=== PATIENT | male | born 1935 | race Caucasian/White ===

== ENCOUNTER 2017-05-21 10:30 | Outpatient (CLI) | payer OTHER | END 2017-05-21 18:01 | disposition home or self-care (01) | LOC: EEVIPCON 10:30 → SMI 10:30 | DX: M25.562 Pain in left knee (principal) | CPT/HCPCS: 73721 ==

== ENCOUNTER 2019-06-13 17:46 | Inpatient (IN) | payer OTHER, MEDICAID, SELFPAY ==
[~2019-06-13] VITALS: Ht 170.2 cm; Wt 78.5 kg
[2019-06-13 17:49] VITALS: BP_SYST 131
[2019-06-13] MEDS ORDERED: FOLI-43 PO (18:33)
[2019-06-13] MEDS ORDERED: CARB-62 PO (18:33)
[2019-06-13] MEDS ORDERED: CYCL30DR EACH EYE (18:33)
[2019-06-13] MEDS ORDERED: LEVO100T PO (18:33)
[2019-06-13] MEDS ORDERED: SEVE800T8 PO (18:33)
[2019-06-13] MEDS ORDERED: NEPH PO (18:33)
[2019-06-13] MEDS ORDERED: CYAN100082 PO (18:33)
[2019-06-13] MEDS ORDERED: AMI200 PO (18:33)
[2019-06-13] MEDS ORDERED: POLY15DR31 EACH EYE (18:33)
[2019-06-13] MEDS ORDERED: LOSA50TA28 PO (18:33)
[2019-06-13] MEDS ORDERED: DOCU-144 PO (18:33)
[2019-06-13 19:14] LABS: BASOPHILS % (AUTO) 0.4 % (0.0-2.0); EOSINOPHILS # (AUTO) 0.2 K/uL (0.0-0.4); EOSINOPHILS % (AUTO) 1.8 % (0.0-4.0); HEMATOCRIT 31.7 % (36-54); LYMPHOCYTES # (AUTO) 1.4 K/uL (1.0-5.5); LYMPHOCYTES % (AUTO) 14.8 % (20.5-51.5); MEAN CORPUSCULAR HEMOGLOBIN 34 pg (27-31); MEAN CORPUSCULAR HGB CONC 32 % (32-36); MEAN CORPUSCULAR VOLUME 106 fL (79.0-98.0); MONOCYTES # (AUTO) 1.2 K/uL (0.0-1.0); MONOCYTES % (AUTO) 12.3 % (1.7-9.3); NEUTROPHILS # (AUTO) 6.8 K/uL (1.8-7.7); NEUTROPHILS % (AUTO) 70.7 % (40.0-70.0); PLATELET COUNT (AUTO) 106 K/uL (130-430); RED BLOOD CELL COUNT(AUTO) 2.98 MIL/uL (4.2-6.2); RED CELL DISTRIBUTION WIDTH 19.3 % (9.0-15.0); WHITE BLOOD COUNT (AUTO) 9.6 K/uL (4.8-10.8)
[2019-06-13 19:30] LABS: INR 1.3 (0.80-1.20); PROTHROMBIN TIME 12.9 SECS (9.5-12.5)
[2019-06-13 19:37] LABS: ALANINE AMINOTRANSFERASE 8 U/L (12-78); ALBUMIN 1.9 g/dL (3.4-4.8); ANION GAP 13 (5-15); ASPARTATE AMINOTRANSFERASE 24 U/L (10-37); CALCIUM 8.9 mg/dL (8.4-11.0); CHLORIDE 94 mmol/L (98-107); CREATININE 7.31 mg/dL (0.55-1.30); GLUCOSE 121 mg/dL (70-99); POTASSIUM 5.7 mmol/L (3.5-5.1); SODIUM SERUM 133 mmol/L (136-145); TOTAL BILIRUBIN 2.1 mg/dL (0.0-1.0)
[2019-06-13 19:43] LABS: UREA NITROGEN, BLOOD 122 mg/dL (8-21)
[2019-06-13 20:52] LABS: STREPTOCOCCUS A SCREEN (RAPID) NEGATIVE (NEGATIVE)
[2019-06-13 21:08] LABS: INFLUENZA A&B ANTIGEN SCREEN NEGATIVE FOR A & B (NEGATIVE)
[2019-06-13] MEDS ORDERED: IPRATROPIUM BROM 0.5 MG/2.5 ML VIAL.NEB (ATROVENT) INH PRN (21:15)
[2019-06-13] MEDS ORDERED: ALBUTEROL SULFATE 0.083% 2.5 MG/3 ML VIAL.NEB INH PRN (21:15)
[2019-06-13 22:51] VITALS: BP_SYST 113
[2019-06-13 23:15] VITALS: BP_SYST 102
[2019-06-13] MEDS ORDERED: AZITHROMYCIN 500 MG/VIAL (ZITHROMAX) IV ONE (23:42)
[2019-06-13] MEDS ORDERED: cefTRIAXone 1 GM VIAL ONE (23:42)
[2019-06-14] MEDS: ALBUTEROL SULFATE 0.083% 2.5 MG/3 ML VIAL.NEB INH SCH ×4 (00:34→19:54)
[2019-06-14] MEDS: IPRATROPIUM BROM 0.5 MG/2.5 ML VIAL.NEB (ATROVENT) INH SCH ×4 (00:35→19:54)
[2019-06-14] MEDS: cefTRIAXone 1 GM in D5W 50 ML IV SCH ×2 (00:40→20:59)
[2019-06-14] MEDS: AZITHROMYCIN 500 MG in NS 250 ML IV SCH ×2 (00:40→20:59)
[2019-06-14 04:00] VITALS: BP_SYST 94
[2019-06-14] MEDS: SEVELAMER CARBONATE 800 MG TABLET PO SCH ×3 (08:52→17:24)
[2019-06-14] MEDS: DOCUSATE SODIUM 100 MG CAPSULE PO SCH (08:53)
[2019-06-14] MEDS: CYANOCOBALAMIN 1000 mCg TABLET PO SCH (08:54)
[2019-06-14] MEDS: LEVOTHYROXINE SODIUM 0.1 MG TABLET PO SCH (08:54)
[2019-06-14] MEDS: CARBIDOPA/LEVODOPA 25/250 MG TABLET PO SCH ×4 (08:56→21:05)
[2019-06-14] MEDS: LOSARTAN POTASSIUM 50 MG TABLET (COZAAR) PO SCH ×2 (08:57→21:00)
[2019-06-14] MEDS: AMIODARONE HCL 200 MG TABLET PO SCH (08:58)
[2019-06-14 09:01] VITALS: BP_SYST 95
[2019-06-14] MEDS ORDERED: METOCLOPRAMIDE HCL 10 MG/2 ML VIAL IVP PRN (11:15)
[2019-06-14] MEDS ORDERED: ONDANSETRON HCL 4 MG/2 ML VIAL IVP PRN (11:15)
[2019-06-14] MEDS ORDERED: ACETAMINOPHEN 325 MG TABLET PO PRN (11:15)
[2019-06-14] MEDS ORDERED: MORPHINE 4 MG/ML INJ. SYRINGE IVP PRN (11:15)
[2019-06-14] MEDS ORDERED: MORPHINE 2 MG/ML INJ. SYRINGE IVP PRN (11:15)
[2019-06-14] MEDS: LORazepam 2 MG/ML VIAL IVP PRN (11:40)
[2019-06-14 12:00] VITALS: BP_SYST 107
[2019-06-14 16:03] VITALS: BP_SYST 93
[2019-06-14 20:00] VITALS: BP_SYST 113
[2019-06-14] MEDS ORDERED: FOLIC ACID 1 MG TABLET PO SCH (21:00)
[2019-06-15] VITALS: BP_SYST 97
[2019-06-15] MEDS: ALBUTEROL SULFATE 0.083% 2.5 MG/3 ML VIAL.NEB INH SCH (01:00)
[2019-06-15] MEDS: IPRATROPIUM BROM 0.5 MG/2.5 ML VIAL.NEB (ATROVENT) INH SCH (01:00)
[2019-06-15 05:47] VITALS: BP_SYST 108
[2019-06-15 08:42] VITALS: BP_SYST 93
[2019-06-15] MEDS: LORazepam 2 MG/ML VIAL IVP PRN (08:48)
[2019-06-15] MEDS: CYANOCOBALAMIN 1000 mCg TABLET PO SCH (09:00)
[2019-06-15] MEDS: LOSARTAN POTASSIUM 50 MG TABLET (COZAAR) PO SCH (09:00)
[2019-06-15] MEDS: LEVOTHYROXINE SODIUM 0.1 MG TABLET PO SCH (09:00)
[2019-06-15] MEDS: SEVELAMER CARBONATE 800 MG TABLET PO SCH (09:00)
[2019-06-15] MEDS: DOCUSATE SODIUM 100 MG CAPSULE PO SCH (09:00)
[2019-06-15] MEDS: AMIODARONE HCL 200 MG TABLET PO SCH (09:00)
[2019-06-15] MEDS: CARBIDOPA/LEVODOPA 25/250 MG TABLET PO SCH (09:00)
[2019-06-15] MEDS ORDERED: HEPARIN SODIUM,PORCINE 5000 UNITS/ML VIAL SUBCUT ONE (10:45)
[2019-06-15] MEDS ORDERED: DEXTROSE 50% JECT 50 ML DISP.SYRIN IVP ONE (11:13)
[2019-06-15] MEDS ORDERED: NS 1000 ML IV.SOLN IV ONE (11:13)
[2019-06-15] MEDS ORDERED: CALCIUM CHLORIDE 1 GM/10 ML DISP.SYRIN (14 mEq Ca++/SYR) IV ONE (11:13)
[2019-06-15] MEDS ORDERED: SODIUM BICARBONATE 8.4% JECT 50 MEQ/50 ML SYRINGE IVP ONE (11:13)
[2019-06-15] MEDS ORDERED: EPINEPHrine JECT 0.1 MG/ML SYR IVP ONE (11:13)
[2019-06-15] MEDS ORDERED: DOXYCYCLINE HYCLATE 100 MG in D5W 100 ML IV SCH (12:00)
[2019-06-15] MEDS ORDERED: HEPARIN SODIUM,PORCINE 5000 UNITS/ML VIAL SUBCUT SCH (20:00)
== END 2019-06-15 11:14 | disposition expired | DRG 871 ==
LOC: SED 17:46 → STU 21:06
PROVIDERS: ADMIT Internal Medicine Hospice and Palliative Medicine; ATTEND Internal Medicine Hospice and Palliative Medicine
PROC: 5A1D70Z Performance of Urinary Filtration, Intermittent, Less than 6 Hours Per Day (ICD-10-PCS; principal; 2019-06-14)
DX: A41.9 Sepsis, unspecified organism (principal); J18.9 Pneumonia, unspecified organism; J96.01 Acute respiratory failure with hypoxia; N18.6 End stage renal disease; I12.0 Hypertensive chronic kidney disease with stage 5 chronic kidney disease or end stage renal disease; J91.8 Pleural effusion in other conditions classified elsewhere; Z20.828 Contact with and (suspected) exposure to other viral communicable diseases; E87.5 Hyperkalemia; E11.22 Type 2 diabetes mellitus with diabetic chronic kidney disease; I46.9 Cardiac arrest, cause unspecified; I48.91 Unspecified atrial fibrillation; Z99.2 Dependence on renal dialysis; Z78.9 Other specified health status
CPT/HCPCS: 36415; 36600; 71045; 80053; 82803-TC; 82962; 83880; 85025; 85610-TC; 85730-TC; 86403; 86710; 87081; 90935; 93005; 94640; 94760; 99285; G0378; J0171; J0456; J0696; J2060; J2270; J2405; J3490; J7030; J7050; J7060; J7613